=== PATIENT | male | born 1990 | race Caucasian/White ===

== ENCOUNTER 2020-12-09 19:18 | Emergency (ER) | payer OTHER, BC ==
[~2020-12-09] VITALS: Ht 177.8 cm; Wt 67.0 kg
[~2020-12-09 19:18] MED LIST: ATIVAN0.5 MG PO; DECADRON4 MG PO; ONDANSETRON ODT4 MG PO; PROCHLORPERAZIN10 MG PO; SENOKOT8.6 MG PO; SUBOXONE 2 MG-1 EAC2 SL; TYLENOL EXTRA500 MG PO
== END 2020-12-10 00:15 | disposition home or self-care (01) ==
LOC: ED 19:18
DX: S61.001A Unspecified open wound of right thumb without damage to nail, initial encounter (principal); W26.8XXA Contact with other sharp object(s), not elsewhere classified, initial encounter; J45.909 Unspecified asthma, uncomplicated; Z79.899 Other long term (current) drug therapy
CPT/HCPCS: 99283